=== PATIENT | female | born 1995 | race African-American/Black ===

== ENCOUNTER 2017-02-10 15:18 | Emergency (ER) | payer MEDICAID, OTHER ==
[~2017-02-10] VITALS: Ht 175.3 cm; Wt 56.7 kg
[2017-02-10 18:25] LABS: Urine RBC None Seen /hpf (0 - 4)
[2017-02-10 18:30] VITALS: BP 126/76
[2017-02-10 18:42] LABS: Urine Bilirubin Negative (Negative); Urine Blood Negative /uL (Negative); Urine Color Colorless (Yellow); Urine Glucose Normal (Normal); Urine Nitrite Negative (Negative); Urine Squamous Epithelial Cell FEW /hpf (<5); Urine Urobilinogen Normal (Negative); Urine pH 6.5 (5.0-8.0)
[2017-02-10 18:53] LABS: Urine Ketone 1+ (Negative)
== END 2017-02-10 18:47 | disposition home or self-care (01) ==
LOC: ER 15:26
DX: O23.41 Unspecified infection of urinary tract in pregnancy, first trimester (principal); Z3A.16 16 weeks gestation of pregnancy
CPT/HCPCS: 36415; 76805; 81001; 84702

== ENCOUNTER 2019-09-04 11:20 | Emergency (ER) | payer BC, MEDICAID ==
[~2019-09-04] VITALS: Ht 175.3 cm; Wt 59.0 kg
[2019-09-04] MEDS ORDERED: traMADol HCL 50 MG TAB PO ONE (13:30)
[2019-09-04 14:22] VITALS: BP 109/80
== END 2019-09-04 15:16 | disposition home or self-care (01) ==
LOC: ER 11:20
DX: S93.401A Sprain of unspecified ligament of right ankle, initial encounter (principal); W19.XXXA Unspecified fall, initial encounter; Y93.89 Activity, other specified; Y99.8 Other external cause status; Y92.89 Other specified places as the place of occurrence of the external cause
CPT/HCPCS: 73610; 73700

== ENCOUNTER → 2019-12-20 | Outpatient (CLI) | payer BC, MEDICAID ==
[2019-12-20 14:10] LABS: Basophils # (auto) 0 uL; Basophils % (auto) 0.7 % (0.0-2.0); Eosinophils # (auto) 0.3 uL; Eosinophils % (auto) 4.3 % (0.0-7.0); Hematocrit 44.3 % (36.0-46.0); Lymphocytes # (auto) 1.4 uL; Lymphocytes % (auto) 23.7 % (10.0-50.0); Mean Corpuscular Hemoglobin 30.8 pg (28.0-32.0); Mean Corpuscular Hgb Conc. 33.8 g/dL (32.0-36.0); Mean Corpuscular Volume 91.2 fL (80.0-100.0); Monocytes # (auto) 0.3 uL; Neutrophils % (auto) 66.3 % (37.0-80.0); Platelet Count (auto) 198 10^3/uL (140-450); Red Blood Cells 4.86 10^6/uL (4.0-5.20); Red Cell Distribution Width 13.9 % (11.8-14.3); White Blood Cell 6.1 10^3/uL (4.4-10.8)
[2019-12-20 14:26] LABS: Urine Bacteria FEW /hpf (None Seen); Urine Blood 2+ /uL (Negative); Urine Mucus FEW (None Seen); Urine Specific Gravity 1.025 (1.001-1.035); Urine WBC 700 /hpf (0 - 5); Urine WBC Clumps PRESENT /hpf (None Seen)
[2019-12-20 14:28] LABS: Albumin 3.8 g/dL (3.4-5.0); Calcium 8.9 mg/dL (8.5-10.1); Magnesium 2.2 mg/dL (1.6-2.6); Potassium 3.7 mmol/L (3.5-5.1)
[2019-12-20 14:38] LABS: Free T3 2.91 pg/mL (2.3-4.2); Free T4 (Free Thyroxine) 1.06 ng/dL (0.89-1.76); T3 Total 0.91 ng/mL (0.60-1.81)
[2019-12-20 14:39] LABS: Folate (Folic Acid) 6.52 ng/mL (5.38-24)
[2019-12-20 14:40] LABS: BUN/Creatinine Ratio 16.7; Bilirubin, Total 0.6 mg/dL (0.2-1.0); Total Protein 7.4 g/dL (6.4-8.2); Uric Acid 3.4 mg/dL (2.6-6.0)
[2019-12-21 04:06] LABS: RPR Non Reactive (Non Reactive)
[2019-12-22 08:55] LABS: Hepatitis B Surface Antibody Positive
[2019-12-22 09:58] LABS: Hepatitis B Surface Antigen Negative (Negative)
== END | disposition home or self-care (01) ==
LOC: LAB 13:46
DX: Z00.00 Encounter for general adult medical examination without abnormal findings (principal); Z76.89 Persons encountering health services in other specified circumstances
CPT/HCPCS: 36415; 80053; 80061; 81001; 82306; 82607; 82746; 83036; 83735; 84403; 84439; 84443; 84480; 84481; 84550; 85025; 86592; 86695; 86696; 86703; 86706; 86803; 87086; 87340